=== PATIENT | female | born 1985 | race Caucasian/White ===

== ENCOUNTER 2018-02-26 16:28 | Emergency (ER) | payer OTHER ==
[~2018-02-26] VITALS: Ht 160 cm; Wt 74.8 kg
[~2018-02-26 16:28] MED LIST: AZITHROMYCIN 2250 MG PO; NOHOMEMEDICATIONS
[2018-02-26 16:41] LABS: URINE BILIRUBIN NEGATIVE (Negative); URINE BLOOD NEGATIVE (Negative); URINE CLARITY CLEAR; URINE COLOR YELLOW; URINE GLUCOSE-RANDOM* NEGATIVE (Negative); URINE KETONES NEGATIVE (Negative); URINE LEUKOCYTES-REFLEX 2+ (Negative); URINE NITRITE-REFLEX NEGATIVE (Negative); URINE PROTEIN (DIPSTICK) NEGATIVE (Negative); URINE UROBILINOGEN 0.2 E.U./dl (0.2-1.0)
[2018-02-26] MEDS ORDERED: LEXAPRO20 MG PO (16:41)
[2018-02-26] MEDS ORDERED: XANAX1 MG PO (16:42)
[2018-02-26 16:48] LABS: BACTERIA-REFLEX None Seen /HPF (None Seen); CASTS None Seen /LPF (None Seen); CRYSTALS None Seen /LPF (None Seen); SQUAMOUS 4-10 Moderate /LPF (0-3); URINE WBC-REFLEX 6-15 Few /HPF (0-5)
[2018-02-26 16:49] LABS: URINE RBC 0-2 Rare /HPF (0-2); WBC CLUMPS Few (None Seen)
[2018-02-26] MEDS ORDERED: MOBIC15 MG PO (18:45)
[2018-02-26] MEDS ORDERED: FLAGYL500 MG PO (18:45)
[2018-02-26] MEDS ORDERED: BACTRIM DS TAB1 EACH PO (18:46)
[2018-02-26 19:15] VITALS: BP 129/78
[2018-02-27 14:08] LABS: NEISSERIA GONORRHEA-PCR Negative (Negative)
== END 2018-02-26 19:18 | disposition home or self-care (01) ==
LOC: ER 16:28
PROVIDERS: Physician Assistant
DX: A59.9 Trichomoniasis, unspecified (principal); F17.210 Nicotine dependence, cigarettes, uncomplicated; Z88.1 Allergy status to other antibiotic agents; Z88.0 Allergy status to penicillin